=== PATIENT | female | born 1940 | race African-American/Black ===

== ENCOUNTER 2022-01-13 01:14 | Inpatient (IN) ==
[2022-01-13] MEDS ORDERED: DILTIAZEM 50 MG/10 ML VIAL IV ONE (01:34)
[2022-01-13] MEDS ORDERED: ONDANSETRON 4 MG/2 ML VIAL IV PRN (01:35)
[2022-01-13] MEDS ORDERED: GLUCAGON 1 MG VIAL IM PRN (01:35)
[2022-01-13] MEDS ORDERED: DEXTROSE 10% 250 ML BAG IV PRN (01:46)
[2022-01-13] MEDS ORDERED: DILTIAZEM INJ 100 MG in SODIUM CHLORIDE 0.9% 100 ML IV SCH (02:00)
[2022-01-13] MEDS ORDERED: AMIODARONE INJ 450 MG in DEXTROSE 5% 241 ML IV SCH (02:00)
[2022-01-13] MEDS ORDERED: AMIODARONE INJ 150 MG in DEXTROSE 5% 100 ML IV ONE (03:30)
[2022-01-13] MEDS ORDERED: SODIUM CHLORIDE 0.9% 250 ML IV ONE (03:57)
[2022-01-13] MEDS ORDERED: SODIUM CHLORIDE 0.9% 1,000 ML IV SCH (04:00)
[2022-01-13 05:03] LABS: Basophils % 0.1 % (0.0-0.8); Eosinophils % 0.1 % (0.00-10.9); Hematocrit 37.1 VOL% (35.7-47.0); Hemoglobin 12.2 GM/DL (12.0-16.0); Immature Granulocytes % 0.7 %; Immature Granulocytes Absolute 0.06 #; Lymphocytes # 1.8 10*3/uL (1.4-4.0); Lymphocytes % 20.1 % (21.3-54.2); Mean Corpuscular HGB Conc 32.9 GM/DL (32-36); Mean Corpuscular Volume 90.5 FL (87-102); Mean Platelet Volume 10.6 FL (9.6-12.0); Monocytes # 0.9 10*3/uL (0.11-0.8); Monocytes % 9.9 % (1.7-12.7); NRBC # 0.02 10*3/uL; Neutrophils % 69.1 % (38.7-73.9); Platelet Count 270 T/CUMM (130-400); Red Cell Distribution Width 16.7 % (9.3-17.3); White Blood Count 8.9 T/CUMM (4-12)
[2022-01-13 05:22] LABS: Platelet Estimate Normal
[2022-01-13 05:27] LABS: Albumin 1.8 G/DL (3.4-5.0); Bilirubin,Total 0.4 MG/DL (0.20-1.00); Calcium 7.7 MG/DL (8.5-10.1); Osmolality,Calculated 283.3 MOS/KG (273-304); Potassium 3.4 MMOL/L (3.5-5.1); Risk Ratio 1.89; Total Protein 5.1 G/DL (6.4-8.2); VLDL Cholesterol 14.8 MG/DL
[2022-01-13] MEDS ORDERED: MAGNESIUM SULF RIDER 2 GM/50 ML PREMIX IV ONE (07:27)
[2022-01-13] MEDS ORDERED: POTASSIUM CHLORIDE 20 MEQ TABLET PO ONE (07:27)
[2022-01-13] MEDS: PANTOPRAZOLE 40 MG TABLET PO SCH (08:45)
[2022-01-13] MEDS: AMIODARONE INJ 450 MG in DEXTROSE 5% 241 ML IV SCH (08:47)
[2022-01-13] MEDS ORDERED: ENOXAPARIN 30 MG/0.3 ML SYRINGE SUBCUT SCH (11:00)
[2022-01-13] MEDS: INSULIN REGULAR 100 UNIT/ML SUBCUT SCH ×3 (11:53→20:01)
[2022-01-13] MEDS: DILTIAZEM INJ 100 MG in SODIUM CHLORIDE 0.9% 100 ML IV SCH (13:34)
[2022-01-13 19:54] LABS: Bilirubin,Urine Negative (Negative); Blood, Urine Trace mg/dL (Negative); Glucose,Urine (UA) Negative (Negative); Ketones,Urine Negative (Negative); Nitrite,Urine Positive (Negative); Protein,Urine Negative (Negative); Urine Appearance Clear (Clear); Urine Color Yellow (Yellow); Urine Specific Gravity 1.025 (1.001-1.035); Urine Urobilinogen 0.2 eU/dL (<2.0); Urine pH 5.5 (4.5-8.0)
[2022-01-13 19:55] LABS: Bacteria,Urine Many /HPF (Few); Mucus,Urine Occasional /LPF (Occasional); RBC,Urine 1 /HPF (0-4); Squamous Epithelial Cell,Urine Occasional /HPF (0-10)
[2022-01-13 20:58] LABS: Barbiturates Screen,Urine Negative (Negative); Benzodiazepines Screen,Urine Positive (Negative); Cannabinoid Screen,Urine Negative (Negative); Opiate Screen,Urine Negative (Negative); Phencyclidine Screen,Urine Negative (Negative)
[2022-01-14] MEDS: DILTIAZEM INJ 100 MG in SODIUM CHLORIDE 0.9% 100 ML IV SCH ×2 (00:41→10:26)
[2022-01-14] MEDS: AMIODARONE INJ 450 MG in DEXTROSE 5% 241 ML IV SCH ×2 (00:52→16:10)
[2022-01-14 05:01] LABS: Basophils % 0.1 % (0.0-0.8); Eosinophils # 0.1 10*3/uL (0.0-0.87); Eosinophils % 0.9 % (0.00-10.9); Hematocrit 38.4 VOL% (35.7-47.0); Hemoglobin 12.1 GM/DL (12.0-16.0); Immature Granulocytes % 0.4 %; Immature Granulocytes Absolute 0.04 #; Lymphocytes # 1.5 10*3/uL (1.4-4.0); Lymphocytes % 16.3 % (21.3-54.2); Mean Corpuscular HGB Conc 31.5 GM/DL (32-36); Mean Corpuscular Volume 92.8 FL (87-102); Mean Platelet Volume 9.7 FL (9.6-12.0); Monocytes # 0.7 10*3/uL (0.11-0.8); Monocytes % 7.5 % (1.7-12.7); NRBC # 0.02 10*3/uL; Neutrophils % 74.8 % (38.7-73.9); Platelet Count 352 T/CUMM (130-400); Red Blood Count 4.14 MC/CUMM (3.8-5.5); White Blood Count 9.3 T/CUMM (4-12)
[2022-01-14 05:26] LABS: Calcium 7.6 MG/DL (8.5-10.1); Osmolality,Calculated 281.1 MOS/KG (273-304); Potassium 3.3 MMOL/L (3.5-5.1)
[2022-01-14] MEDS: INSULIN REGULAR 100 UNIT/ML SUBCUT SCH ×4 (07:39→21:04)
[2022-01-14] MEDS ORDERED: POTASSIUM CHLORIDE 20 MEQ TABLET PO ONE (08:02)
[2022-01-14] MEDS ORDERED: METOPROLOL TARTRATE 5 MG/5 ML VIAL IV ONE (08:54)
[2022-01-14] MEDS ORDERED: cefTRIAXone 1,000 MG in SODIUM CHLORIDE 0.9% 100 ML IV SCH (09:00)
[2022-01-14] MEDS: PANTOPRAZOLE 40 MG TABLET PO SCH (09:10)
[2022-01-14] MEDS: VANCOMYCIN 125 MG CAPSULE PO SCH ×3 (12:06→23:35)
[2022-01-14] MEDS: predniSONE 20 MG TABLET PO SCH (12:30)
[2022-01-14] MEDS: DIGOXIN 0.25 MG TABLET PO SCH (13:29)
[2022-01-14] MEDS: DILTIAZEM 60 MG TABLET PO SCH ×3 (13:29→21:04)
[2022-01-14] MEDS: SODIUM CHLORIDE 0.45% 1,000 ML IV SCH (13:29)
[2022-01-14] MEDS: ACETAMINOPHEN 325 MG TABLET PO PRN ×2 (13:33→21:11)
[2022-01-14] MEDS: METOPROLOL TARTRATE 25 MG TABLET PO SCH (21:04)
[2022-01-14] MEDS: AMIODARONE 200 MG TABLET PO SCH (21:04)
[2022-01-14] MEDS: NITROFURANTOIN MACRO/MONO 100 MG CAPSULE PO SCH (21:04)
[2022-01-15 06:07] LABS: Eosinophils % 0.5 % (0.00-10.9); Hematocrit 41.2 VOL% (35.7-47.0); Hemoglobin 13.2 GM/DL (12.0-16.0); Immature Granulocytes % 0.8 %; Immature Granulocytes Absolute 0.06 #; Lymphocytes # 1.7 10*3/uL (1.4-4.0); Lymphocytes % 21.9 % (21.3-54.2); Mean Corpuscular Volume 91.4 FL (87-102); Mean Platelet Volume 10.4 FL (9.6-12.0); Monocytes # 0.7 10*3/uL (0.11-0.8); Neutrophils % 67.8 % (38.7-73.9); Platelet Count 317 T/CUMM (130-400); Red Blood Count 4.51 MC/CUMM (3.8-5.5); Red Cell Distribution Width 17.2 % (9.3-17.3); White Blood Count 7.7 T/CUMM (4-12)
[2022-01-15 06:21] LABS: Calcium 7.8 MG/DL (8.5-10.1); Potassium 3.4 MMOL/L (3.5-5.1)
[2022-01-15] MEDS: VANCOMYCIN 125 MG CAPSULE PO SCH ×4 (06:21→23:57)
[2022-01-15] MEDS: AMIODARONE INJ 450 MG in DEXTROSE 5% 241 ML IV SCH ×2 (06:24→22:41)
[2022-01-15] MEDS ORDERED: ALBUTEROL/IPRATROPIUM 3 ML NEB RESP TX PRN (07:44)
[2022-01-15] MEDS ORDERED: POTASSIUM CHLORIDE 20 MEQ TABLET PO ONE (07:50)
[2022-01-15] MEDS: INSULIN REGULAR 100 UNIT/ML SUBCUT SCH ×4 (08:22→21:13)
[2022-01-15] MEDS ORDERED: NON-FORMULARY MEDICATION (Nifedipine 60 mg Tablet Extended Release) PO SCH (09:00)
[2022-01-15] MEDS: ISOSORBIDE MONONITRATE 60 MG TABLET PO SCH (09:53)
[2022-01-15] MEDS: DULoxetine 30 MG CAPSULE PO SCH (09:53)
[2022-01-15] MEDS: ATORVASTATIN 40 MG TABLET PO SCH (09:54)
[2022-01-15] MEDS: DILTIAZEM 60 MG TABLET PO SCH ×4 (09:54→22:01)
[2022-01-15] MEDS: AMIODARONE 200 MG TABLET PO SCH ×2 (09:54→22:02)
[2022-01-15] MEDS: predniSONE 20 MG TABLET PO SCH (09:54)
[2022-01-15] MEDS: NITROFURANTOIN MACRO/MONO 100 MG CAPSULE PO SCH (09:58)
[2022-01-15] MEDS: METOPROLOL TARTRATE 25 MG TABLET PO SCH ×2 (09:59→22:01)
[2022-01-15] MEDS: PANTOPRAZOLE 40 MG TABLET PO SCH (10:00)
[2022-01-15] MEDS: BUDESONIDE/FORMOTEROL 160-4.5 INHALER 6 GM INH SCH ×2 (10:01→22:02)
[2022-01-15] MEDS: SODIUM CHLORIDE 0.45% 1,000 ML IV SCH (13:15)
[2022-01-15] MEDS: DIGOXIN 0.25 MG TABLET PO SCH (13:34)
[2022-01-15] MEDS: cephALEXin 500 MG CAPSULE PO SCH (22:01)
[2022-01-16 04:55] LABS: Basophils % 0.1 % (0.0-0.8); Eosinophils % 0.6 % (0.00-10.9); Hematocrit 40.5 VOL% (35.7-47.0); Immature Granulocytes % 0.4 %; Immature Granulocytes Absolute 0.03 #; Lymphocytes # 1.5 10*3/uL (1.4-4.0); Lymphocytes % 21.5 % (21.3-54.2); Mean Corpuscular HGB Conc 32.1 GM/DL (32-36); Mean Corpuscular Volume 91.2 FL (87-102); Monocytes # 0.7 10*3/uL (0.11-0.8); Monocytes % 10.3 % (1.7-12.7); Neutrophils % 67.1 % (38.7-73.9); Platelet Count 204 T/CUMM (130-400); Red Blood Count 4.44 MC/CUMM (3.8-5.5); White Blood Count 7.1 T/CUMM (4-12)
[2022-01-16] MEDS: VANCOMYCIN 125 MG CAPSULE PO SCH ×4 (04:55→22:38)
[2022-01-16 05:44] LABS: Calcium 7.8 MG/DL (8.5-10.1); Osmolality,Calculated 276.5 MOS/KG (273-304); Potassium 3.5 MMOL/L (3.5-5.1)
[2022-01-16] MEDS: INSULIN REGULAR 100 UNIT/ML SUBCUT SCH ×4 (07:46→22:08)
[2022-01-16] MEDS: BUDESONIDE/FORMOTEROL 160-4.5 INHALER 6 GM INH SCH ×2 (09:25→22:23)
[2022-01-16] MEDS: SODIUM CHLORIDE 0.45% 1,000 ML IV SCH (09:25)
[2022-01-16] MEDS: DULoxetine 30 MG CAPSULE PO SCH (09:26)
[2022-01-16] MEDS: AMIODARONE 200 MG TABLET PO SCH ×2 (09:26→22:08)
[2022-01-16] MEDS: cephALEXin 500 MG CAPSULE PO SCH ×2 (09:26→22:08)
[2022-01-16] MEDS: METOPROLOL TARTRATE 25 MG TABLET PO SCH ×2 (09:27→22:07)
[2022-01-16] MEDS: POTASSIUM CHLORIDE 10 MEQ TABLET PO SCH (09:27)
[2022-01-16] MEDS: ISOSORBIDE MONONITRATE 60 MG TABLET PO SCH (09:27)
[2022-01-16] MEDS: predniSONE 20 MG TABLET PO SCH (09:27)
[2022-01-16] MEDS: DILTIAZEM CD 180 MG CAPSULE PO SCH (09:27)
[2022-01-16] MEDS: ATORVASTATIN 40 MG TABLET PO SCH (09:27)
[2022-01-16] MEDS: PANTOPRAZOLE 40 MG TABLET PO SCH (09:27)
[2022-01-16] MEDS: DIGOXIN 0.125 MG TABLET PO SCH (13:16)
[2022-01-17 05:21] LABS: Eosinophils # 0.1 10*3/uL (0.0-0.87); Eosinophils % 0.9 % (0.00-10.9); Hematocrit 40.5 VOL% (35.7-47.0); Hemoglobin 12.8 GM/DL (12.0-16.0); Immature Granulocytes % 0.3 %; Immature Granulocytes Absolute 0.02 #; Lymphocytes # 1.6 10*3/uL (1.4-4.0); Lymphocytes % 24.8 % (21.3-54.2); Mean Corpuscular HGB Conc 31.6 GM/DL (32-36); Mean Platelet Volume 9.2 FL (9.6-12.0); Monocytes # 0.7 10*3/uL (0.11-0.8); Monocytes % 11.3 % (1.7-12.7); Neutrophils % 62.7 % (38.7-73.9); Platelet Count 288 T/CUMM (130-400); Red Blood Count 4.31 MC/CUMM (3.8-5.5); Red Cell Distribution Width 16.9 % (9.3-17.3); White Blood Count 6.4 T/CUMM (4-12)
[2022-01-17] MEDS: SODIUM CHLORIDE 0.45% 1,000 ML IV SCH (05:21)
[2022-01-17 05:30] LABS: Calcium 7.7 MG/DL (8.5-10.1); Osmolality,Calculated 271.7 MOS/KG (273-304); Potassium 3.2 MMOL/L (3.5-5.1)
[2022-01-17] MEDS: VANCOMYCIN 125 MG CAPSULE PO SCH ×2 (05:41→12:14)
[2022-01-17] MEDS ORDERED: POTASSIUM CHLORIDE 20 MEQ TABLET PO ONE (08:11)
[2022-01-17] MEDS: METOPROLOL TARTRATE 25 MG TABLET PO SCH (09:14)
[2022-01-17] MEDS: PANTOPRAZOLE 40 MG TABLET PO SCH (09:14)
[2022-01-17] MEDS: predniSONE 20 MG TABLET PO SCH (09:14)
[2022-01-17] MEDS: DILTIAZEM CD 180 MG CAPSULE PO SCH (09:14)
[2022-01-17] MEDS: ISOSORBIDE MONONITRATE 60 MG TABLET PO SCH (09:14)
[2022-01-17] MEDS: DULoxetine 30 MG CAPSULE PO SCH (09:14)
[2022-01-17] MEDS: POTASSIUM CHLORIDE 10 MEQ TABLET PO SCH (09:15)
[2022-01-17] MEDS: cephALEXin 500 MG CAPSULE PO SCH (09:15)
[2022-01-17] MEDS: INSULIN REGULAR 100 UNIT/ML SUBCUT SCH ×2 (09:15→11:26)
[2022-01-17] MEDS: AMIODARONE 200 MG TABLET PO SCH (09:15)
[2022-01-17] MEDS: ATORVASTATIN 40 MG TABLET PO SCH (09:15)
[2022-01-17] MEDS: BUDESONIDE/FORMOTEROL 160-4.5 INHALER 6 GM INH SCH (09:16)
[2022-01-17 12:02] VITALS: BP 109/65
[2022-01-17] MEDS: DIGOXIN 0.125 MG TABLET PO SCH (12:14)
[2022-01-17] MEDS ORDERED: ZINC OXIDE 16% PASTE 57 GM TUBE TOP SCH (14:30)
[2022-01-17] MEDS ORDERED: POTASSIUM CHLORIDE 10 MEQ TABLET PO SCH (21:00)
[2022-01-18] MEDS ORDERED: ASPIRIN EC 81 MG TABLET PO SCH (09:00)
== END 2022-01-17 16:13 | disposition swing bed (61) | DRG 308 ==
LOC: N.TELES 01:14 → SUATTDRO 04:12 → N.TELES 04:12 → N.TELEN 01-14 17:34
PROVIDERS: ADMIT Internal Medicine; ATTEND Hospitalist